=== PATIENT | female | born 1995 | race Hispanic/Latino ===

== ENCOUNTER 2022-04-11 12:20 | Outpatient (CLI) | payer OTHER | END 2022-04-11 12:21 | disposition home or self-care (01) | LOC: CSHULT 12:20 | PROVIDERS: ATTEND Family Medicine | DX: O09.892 Supervision of other high risk pregnancies, second trimester (principal); Z3A.28 28 weeks gestation of pregnancy | CPT/HCPCS: 76805 ==

== ENCOUNTER 2022-05-25 19:27 | Day surgery (SDC) | payer OTHER ==
[2022-05-25 19:43] VITALS: BMI 31.8
[2022-05-25] MEDS ORDERED: hydrALAZINE 20 MG/ML VIAL SLOW IVP PRN (20:45)
[2022-05-25 21:04] LABS: Bilirubin Neg (Negative); Blood, Urine Negative (Negative); Clarity Clear (Clear); Glucose, Urine (Dipstick) Normal (Negative); Ketone, Urine Negative (Negative); Leukocyte Negative (Negative); Nitrite Negative (Negative); Protein, Urine (Dipstick) Negative (Neg-Trace); Urobilinogen Normal mg/dL (Less than 2)
[2022-05-25 21:05] LABS: Urine Culture Reflex No No
[2022-05-25 21:20] LABS: Bacteria/HPF Rare-Few HPF (None Seen); RBC/HPF 0-3 HPF (0-3); Squamous Epithelial 0-3 HPF (0-3); WBC/HPF 0-3 HPF (0-3)
== END 2022-05-25 23:15 | disposition home or self-care (01) ==
LOC: CSHLD/OP 19:27
PROVIDERS: ATTEND Obstetrics & Gynecology
DX: O36.8130 Decreased fetal movements, third trimester, not applicable or unspecified (principal); O47.03 False labor before 37 completed weeks of gestation, third trimester; O34.219 Maternal care for unspecified type scar from previous cesarean delivery; Z3A.35 35 weeks gestation of pregnancy
CPT/HCPCS: 76819; 81001; 99283

== ENCOUNTER 2022-06-09 01:31 | Day surgery (SDC) | payer OTHER ==
[2022-06-09 02:07] VITALS: BMI 32.2
[2022-06-09 02:33] LABS: Fetal Membranes Rupture No Membranes Rupture (No Rupture)
[2022-06-09] MEDS ORDERED: hydrALAZINE 20 MG/ML VIAL SLOW IVP PRN (02:56)
== END 2022-06-09 05:05 | disposition home or self-care (01) ==
LOC: CSHLD/OP 01:31
PROVIDERS: ATTEND Family Medicine
DX: O42.92 Full-term premature rupture of membranes, unspecified as to length of time between rupture and onset of labor (principal); Z3A.37 37 weeks gestation of pregnancy; Z79.899 Other long term (current) drug therapy; Z98.890 Other specified postprocedural states
CPT/HCPCS: 84112; 87480; 87510; 87660; 99285

== ENCOUNTER 2022-06-20 09:40 | Inpatient (IN) | payer MEDICAID, OTHER, SELFPAY ==
[2022-06-19 11:32] LABS: SARS-CoV-2 NAA Rapid Test Not Detected (NotDetected)
[2022-06-20] MEDS ORDERED: Promethazine HCl 25 MG/ML VIAL IM PRN ×4 (10:18→16:30)
[2022-06-20] MEDS ORDERED: Lactated Ringer's 1,000 ML IV SCH (10:18)
[2022-06-20] MEDS ORDERED: hydrALAZINE 20 MG/ML VIAL SLOW IVP PRN ×2 (10:18→16:30)
[2022-06-20] MEDS ORDERED: Famotidine/PF 20 mg/2ml Vial SLOW IVP PRN (10:18)
[2022-06-20] MEDS ORDERED: Bicitra 30 ML UDCUP PO PRN (10:18)
[2022-06-20] MEDS ORDERED: Ondansetron PF 4 MG/2 ML Vial IVP PRN ×4 (10:18→16:30)
[2022-06-20] MEDS ORDERED: Phenylephrine 40 MG/NS 250 ML 250 ML ONE (11:03)
[2022-06-20] MEDS ORDERED: Metoclopramide HCl 10 MG/2 ML VIAL ONE (11:04)
[2022-06-20] MEDS ORDERED: Dexamethasone 4 mg/ml Vial ONE (11:04)
[2022-06-20] MEDS ORDERED: Ketorolac Tromethamine 30 MG/ML VIAL ONE (11:04)
[2022-06-20] MEDS ORDERED: Ondansetron PF 4 MG/2 ML Vial ONE (11:04)
[2022-06-20] MEDS ORDERED: Oxytocin 10 UNITS/ML VIAL ONE ×2 (11:05→12:17)
[2022-06-20] MEDS ORDERED: Morphine PF 10 MG/10 ML VIAL ONE (11:05)
[2022-06-20 11:15] VITALS: BMI 33.2
[2022-06-20 11:31] LABS: Hemoglobin 10.9 g/dL (12.0-15.5); Mean Corpuscular HGB CONC 34.3 g/dL (32.0-36.0); Mean Corpuscular Hemoglobin 28.9 pg (27.0-33.0); Mean Corpuscular Volume 84.4 fl (81.6-98.3); Mean Platelet Volume 9.3 fl (7.4-10.4); Platelet Count 266 10x3/uL (150-450); Red Blood Cell (RBC) Count 3.77 10x6/uL (3.90-5.03); White Blood Cell (WBC) Count 9.1 10x3/uL (3.5-10.5)
[2022-06-20] MEDS: CEFAZOLIN 2 GM in Sodium Chloride 0.9% 100 ML IVPB SCH ×3 (11:37→20:41)
[2022-06-20] MEDS ORDERED: Naloxone HCl 0.4 mg/ml Vial IVP PRN ×2 (11:40)
[2022-06-20] MEDS ORDERED: Promethazine HCl 25 MG SUPP PR PRN (11:40)
[2022-06-20] MEDS ORDERED: Meperidine HCl/PF 25 MG/ML VIAL SLOW IVP PRN (11:40)
[2022-06-20] MEDS ORDERED: Ondansetron HCl/PF 4 MG/2 ML Vial IVP PRN (11:40)
[2022-06-20] MEDS ORDERED: Moisturizing Cream (Eucerin) 113 GM JAR TOP PRN (11:40)
[2022-06-20] MEDS ORDERED: diphenhydrAMINE 50 MG/ML VIAL IVP PRN ×2 (11:40→12:51)
[2022-06-20] MEDS ORDERED: Fentanyl 100 MCG/2 ML VIAL SLOW IVP PRN (11:40)
[2022-06-20] MEDS ORDERED: Naloxone HCl 0.4 mg/ml Vial IV PRN ×2 (11:40→12:51)
[2022-06-20] MEDS ORDERED: Communication Order-Pharmacy FS SCH ×2 (11:45→13:00)
[2022-06-20 11:52] LABS: HBSAg Index 0.24 S/CO (0-0.99); Hep B Surf Ag Non-Reactive S/CO (NonReactive); Syphilis Antibody Nonreactive (Nonreactive); Syphilis Antibody Index 0.03 S/CO (<1.00 Non-Reactive)
[2022-06-20] MEDS ORDERED: Fentanyl 100 MCG/2 ML VIAL ONE (12:29)
[2022-06-20] MEDS ORDERED: Zolpidem Tartrate 5 MG TAB PO PRN (12:51)
[2022-06-20] MEDS ORDERED: diphenhydrAMINE 50 MG/ML VIAL IM PRN (12:51)
[2022-06-20] MEDS ORDERED: diphenhydrAMINE 25 MG CAP PO PRN ×2 (12:51→16:30)
[2022-06-20] MEDS ORDERED: fentaNYL Citrate/PF 2,000 MCG in Sodium Chloride 0.9% 60 ML IV PRN (12:51)
[2022-06-20] MEDS ORDERED: metroNIDAZOLE 500 MG in Premix Bag 1 BAG IVPB SCH (14:00)
[2022-06-20] MEDS ORDERED: Lanolin Ointment 7 GM TUBE TOP PRN (16:30)
[2022-06-20] MEDS ORDERED: Bisacodyl 10 MG SUPP PR PRN (16:30)
[2022-06-20] MEDS ORDERED: NS w/ Oxytocin 30 units 500 ML IV SCH (16:30)
[2022-06-20] MEDS ORDERED: Boostrix 0.5 ML (Tdap) VIAL IM ONE (16:30)
[2022-06-20] MEDS ORDERED: Ketorolac Tromethamine 30 MG/ML VIAL IVP PRN (18:00)
[2022-06-20] MEDS: Ketorolac Tromethamine 30 MG/ML VIAL IVP SCH ×2 (18:54→23:57)
[2022-06-20] MEDS: Docusate 100 MG CAP PO SCH (21:00)
[2022-06-20] MEDS: Ferrous Sulfate 325 MG TAB PO SCH (21:00)
[2022-06-20] MEDS ORDERED: HYDROcodone/Acetaminophen 5/325 mg Tablet PO PRN (23:45)
[2022-06-20] MEDS ORDERED: Meperidine HCl/PF 25 MG/ML VIAL IM PRN (23:45)
[2022-06-21] MEDS: metroNIDAZOLE 500 MG in Premix Bag 1 BAG IVPB SCH ×2 (01:05→09:58)
[2022-06-21] MEDS: CEFAZOLIN 2 GM in Sodium Chloride 0.9% 100 ML IVPB SCH ×2 (04:16→09:58)
[2022-06-21 05:30] LABS: Hemoglobin 8.4 g/dL (12.0-15.5); Mean Corpuscular HGB CONC 34.3 g/dL (32.0-36.0); Mean Corpuscular Hemoglobin 29.4 pg (27.0-33.0); Mean Corpuscular Volume 85.7 fl (81.6-98.3); Mean Platelet Volume 9.6 fl (7.4-10.4); Platelet Count 212 10x3/uL (150-450); RBC Distribution Width 13.6 % (11.5-14.5); Red Blood Cell (RBC) Count 2.86 10x6/uL (3.90-5.03); White Blood Cell (WBC) Count 13.9 10x3/uL (3.5-10.5)
[2022-06-21] MEDS: Ketorolac Tromethamine 30 MG/ML VIAL IVP SCH (06:29)
[2022-06-21] MEDS: HYDROcodone/Acetaminophen 5/325 mg Tablet PO PRN ×3 (09:56→18:49)
[2022-06-21] MEDS: Simethicone Chewable 80 MG TAB PO PRN (09:57)
[2022-06-21] MEDS: Docusate 100 MG CAP PO SCH ×2 (09:57→22:05)
[2022-06-21] MEDS: Prenatal Vitamin 1 TAB PO SCH (09:57)
[2022-06-21] MEDS: Ferrous Sulfate 325 MG TAB PO SCH ×2 (09:59→21:15)
[2022-06-21] MEDS: Ibuprofen 800 MG TAB PO SCH ×2 (15:53→22:05)
[2022-06-22] MEDS: Ibuprofen 800 MG TAB PO SCH ×3 (05:10→21:40)
[2022-06-22] MEDS: HYDROcodone/Acetaminophen 5/325 mg Tablet PO PRN ×2 (10:16→20:10)
[2022-06-22] MEDS: Docusate 100 MG CAP PO SCH ×2 (10:16→21:36)
[2022-06-22] MEDS: Ferrous Sulfate 325 MG TAB PO SCH ×2 (10:16→21:39)
[2022-06-22] MEDS: Prenatal Vitamin 1 TAB PO SCH (10:16)
[2022-06-22] MEDS: Simethicone Chewable 80 MG TAB PO PRN (10:18)
[2022-06-23] MEDS: Ibuprofen 800 MG TAB PO SCH (06:11)
[2022-06-23 07:38] VITALS: BP 115/69; TEMP 98.2
[2022-06-23] MEDS: Docusate 100 MG CAP PO SCH (08:35)
[2022-06-23] MEDS: Ferrous Sulfate 325 MG TAB PO SCH (08:35)
[2022-06-23] MEDS: Prenatal Vitamin 1 TAB PO SCH (08:35)
[2022-06-23] MEDS: HYDROcodone/Acetaminophen 5/325 mg Tablet PO PRN (12:57)
== END 2022-06-23 14:45 | disposition home or self-care (01) | DRG 788 ==
LOC: CSHLD 09:40 → CSHPP 15:50
PROVIDERS: ADMIT Family Medicine; ATTEND Family Medicine
PROC: 10D00Z1 Extraction of Products of Conception, Low, Open Approach (ICD-10-PCS; principal; 2022-06-20)
DX: O34.211 Maternal care for low transverse scar from previous cesarean delivery (principal); Z3A.39 39 weeks gestation of pregnancy; Z37.0 Single live birth; Z20.822 Contact with and (suspected) exposure to COVID-19
CPT/HCPCS: 36415; 51702; 85027; 86780; 86850; 86900; 86901; 87340; J0690; J1100; J1885; J2274; J2405; J2590; J2765; J3010; J3490; J7120; S0028; U0002

== ENCOUNTER 2025-05-31 12:09 | Day surgery (SDC) | payer OTHER ==
[2025-05-31 12:55] VITALS: BMI 34.9
[2025-05-31] MEDS ORDERED: hydrALAZINE 20 MG/ML VIAL SLOW IVP PRN (13:04)
[2025-05-31 13:38] LABS: Glucose, Urine (Dipstick) Normal (Negative); Leukocyte Negative (Negative); Protein, Urine (Dipstick) Negative (Neg-Trace); Specific Gravity, Urine 1.010 (1.005-1.030)
[2025-05-31 13:47] LABS: RBC/HPF None Seen HPF (0-3); WBC/HPF 0-3 HPF (0-3)
[2025-05-31 13:48] LABS: Bacteria/HPF 2+ HPF (None Seen)
== END 2025-05-31 14:50 | disposition home or self-care (01) ==
LOC: CSHLD/OP 12:09
PROVIDERS: ATTEND Family Medicine
DX: O36.8130 Decreased fetal movements, third trimester, not applicable or unspecified (principal); O34.211 Maternal care for low transverse scar from previous cesarean delivery; O24.419 Gestational diabetes mellitus in pregnancy, unspecified control; O99.013 Anemia complicating pregnancy, third trimester; O23.43 Unspecified infection of urinary tract in pregnancy, third trimester; Z3A.34 34 weeks gestation of pregnancy; Z87.59 Personal history of other complications of pregnancy, childbirth and the puerperium; Z79.899 Other long term (current) drug therapy
CPT/HCPCS: 76819; 81001; 99283

== ENCOUNTER 2025-07-06 05:19 | Inpatient (IN) | payer MEDICAID, OTHER ==
[2025-07-05 11:59] LABS: Hematocrit 35.8 % (34.9-44.5); Hemoglobin 11.5 g/dL (12.0-15.5); Mean Corpuscular Hemoglobin 26.8 pg (27.0-33.0); Mean Corpuscular Volume 83.4 fL (81.6-98.3); Platelet Count 303 10x3/uL (150-450); Red Blood Cell (RBC) Count 4.29 10x6/uL (3.90-5.03); White Blood Cell (WBC) Count 8.14 10x3/uL (3.5-10.5)
[2025-07-05 12:31] LABS: Hep B Surf Ag Non-Reactive S/CO (NonReactive)
[2025-07-05 12:33] LABS: Syphilis Antibody Index 0.04 S/CO (<1.00 Non-Reactive)
[2025-07-06 05:59] VITALS: BMI 34.0
[2025-07-06] MEDS ORDERED: Diphenoxylate HCl/Atropine Tablet PO PRN (06:01)
[2025-07-06] MEDS ORDERED: Famotidine/PF 20 mg/2ml Vial SLOW IVP PRN (06:01)
[2025-07-06] MEDS ORDERED: Ondansetron PF 4 MG/2 ML Vial IVP PRN ×4 (06:01→11:00)
[2025-07-06] MEDS ORDERED: Methylergonovine 0.2 MG/ML VIAL IM PRN (06:01)
[2025-07-06] MEDS ORDERED: Tranexamic Acid 1,000 MG/10 ML VIAL IVP PRN (06:01)
[2025-07-06] MEDS ORDERED: Oxytocin 30 units/NS 500 ML 500 ML IV SCH (06:01)
[2025-07-06] MEDS ORDERED: hydrALAZINE 20 MG/ML VIAL SLOW IVP PRN ×2 (06:01→11:00)
[2025-07-06] MEDS ORDERED: Carboprost 250 MCG/ML AMP IM PRN (06:01)
[2025-07-06] MEDS ORDERED: Bicitra 30 ML UDCUP PO PRN (06:01)
[2025-07-06] MEDS ORDERED: Meperidine HCl/PF 25 MG (1 mL) VIAL SLOW IVP PRN (07:30)
[2025-07-06] MEDS ORDERED: Communication Order-Pharmacy FS SCH (07:30)
[2025-07-06] MEDS ORDERED: diphenhydrAMINE 50 MG/ML VIAL IVP PRN (07:30)
[2025-07-06] MEDS ORDERED: Simethicone Chewable 80 MG TAB PO PRN (11:00)
[2025-07-06] MEDS ORDERED: Lanolin Ointment 7 GM TUBE TOP PRN (11:00)
[2025-07-06] MEDS ORDERED: Bisacodyl 10 MG SUPP PR PRN (11:00)
[2025-07-06] MEDS ORDERED: diphenhydrAMINE 25 MG CAP PO PRN (11:00)
[2025-07-06] MEDS: HYDROcodone/Acetaminophen 5/325 mg Tablet PO PRN (11:28)
[2025-07-06] MEDS: Ketorolac Tromethamine 30 MG (1 mL) VIAL ONE (12:05)
[2025-07-06] MEDS: Phenylephrine 40 MG/NS 250 ML 250 ML ONE (12:05)
[2025-07-06] MEDS: PHENYLEPHRINE-NS 100 MCG/ML 10 ML SYRINGE ONE (12:05)
[2025-07-06] MEDS: Ondansetron PF 4 MG/2 ML Vial ONE (12:05)
[2025-07-06] MEDS: Oxytocin 10 UNITS/ML VIAL ONE (12:05)
[2025-07-06] MEDS: SUCCINYLCHOLINE/SOD CL,ISO/PF 200 MG/10 ML SYRINGE FS ONE (12:06)
[2025-07-06] MEDS: PROPOFOL 0 ML ONE (12:06)
[2025-07-06] MEDS: Erythromycin Base 0.5% Oint 1 GM TUBE ONE (12:06)
[2025-07-06] MEDS: Tranexamic Acid 1,000 MG/10 ML VIAL ONE (12:06)
[2025-07-06] MEDS: Boostrix 0.5 ML (Tdap) VIAL (>/=7 yrs of age) IM ONE (12:06)
[2025-07-06] MEDS: Ferrous Sulfate 325 MG TAB PO SCH ×2 (12:07→20:42)
[2025-07-06] MEDS ORDERED: Ketorolac Tromethamine 30 MG (1 mL) VIAL IVP PRN (14:30)
[2025-07-06] MEDS ORDERED: Ketorolac Tromethamine 30 MG (1 mL) VIAL IVP SCH (14:30)
[2025-07-06] MEDS: Ketorolac Tromethamine 30 MG (1 mL) VIAL IVP SCH (15:02)
[2025-07-06] MEDS ORDERED: Meperidine HCl/PF 25 MG (1 mL) VIAL IM PRN (19:30)
[2025-07-07 05:23] LABS: Hematocrit 26.5 % (34.9-44.5); Hemoglobin 8.6 g/dL (12.0-15.5); Mean Corpuscular Hemoglobin 26.8 pg (27.0-33.0); Mean Corpuscular Volume 82.6 fL (81.6-98.3); Platelet Count 214 10x3/uL (150-450); Red Blood Cell (RBC) Count 3.21 10x6/uL (3.90-5.03); White Blood Cell (WBC) Count 9.92 10x3/uL (3.5-10.5)
[2025-07-07] MEDS: HYDROcodone/Acetaminophen 5/325 mg Tablet PO PRN (09:10)
[2025-07-07] MEDS: Ibuprofen 800 MG TAB PO SCH (14:36)
[2025-07-08 07:47] VITALS: BP 110/61; TEMP 98.5
== END 2025-07-08 17:53 | disposition home or self-care (01) | DRG 788 ==
LOC: CSHLD 05:19 → CSHPED 11:35
PROVIDERS: ADMIT Family Medicine; ATTEND Family Medicine
PROC: 10D00Z1 Extraction of Products of Conception, Low, Open Approach (ICD-10-PCS; principal; 2025-07-06)
DX: O34.211 Maternal care for low transverse scar from previous cesarean delivery (principal); Z3A.39 39 weeks gestation of pregnancy; Z37.0 Single live birth
CPT/HCPCS: 36415; 51702; 85027; 86780; 86850; 86900; 86901; 87340; C1889; J1885; J2274; J2590; J2704; J7120